=== PATIENT | female | born 1965 | race Caucasian/White ===

== ENCOUNTER → 2020-01-16 10:37 | Outpatient (CLI) | payer OTHER | END | disposition home or self-care (01) | LOC: D.MRI 10:37 | PROVIDERS: ATTEND Clinical Nurse Specialist Family Health | DX: M25.562 Pain in left knee (principal) ==

== ENCOUNTER → 2020-02-11 12:31 | Outpatient (CLI) | payer OTHER | END | disposition home or self-care (01) | LOC: D.MRI 02-10 13:30 | PROVIDERS: ATTEND Orthopaedic Surgery | DX: M54.16 Radiculopathy, lumbar region (principal) ==